=== PATIENT | female | born 1980 | race Two or more races ===

== ENCOUNTER 2018-03-07 18:34 | Emergency (ER) | payer SELFPAY ==
[~2018-03-07] VITALS: Ht 167.6 cm; Wt 87.0 kg
[2018-03-07] MEDS ORDERED: IBUPROFEN 400MG TABLET PO ONE (19:00)
[2018-03-07 19:34] VITALS: BP 111/71
== END 2018-03-07 19:31 | disposition home or self-care (01) ==
LOC: ER 18:34
DX: S61.210A Laceration without foreign body of right index finger without damage to nail, initial encounter (principal); F17.200 Nicotine dependence, unspecified, uncomplicated; W45.8XXA Other foreign body or object entering through skin, initial encounter; Y93.89 Activity, other specified; Y92.89 Other specified places as the place of occurrence of the external cause; Y99.8 Other external cause status
CPT/HCPCS: 12001; 99283

== ENCOUNTER 2021-10-13 22:11 | Emergency (ER) | payer MEDICAID ==
[~2021-10-13] VITALS: Ht 152.4 cm; Wt 99.7 kg
[2021-10-13] MEDS ORDERED: FAMOTIDINE 20MG TABLET PO ONE (23:45)
[2021-10-14 01:07] LABS: CHLORIDE 106 mEq/L (98-107)
[2021-10-14 01:16] LABS: BASOPHILS % 1.1 % (0.0-2.0); HEMATOCRIT. 40.8 % (36.0-48.0); HEMOGLOBIN. 13.7 g/dL (12.0-16.0); LYMPHOCYTES % 36.8 % (20.0-50.0); MEAN CORPUSCULAR HEMOGLOBIN 29.3 pg (28.0-32.0); MONOCYTES % 7.4 % (2.0-8.0); NEUTROPHILS % 51.7 % (40.0-76.0); PLATELET 257 x1000/uL (130-400); RED CELL DISTRIBUTION WIDTH 13.6 % (11.6-14.6)
[2021-10-14] MEDS ORDERED: HYDR10TA34 MT (01:50)
[2021-10-14 02:25] VITALS: BP 133/74
== END 2021-10-14 02:00 | disposition home or self-care (01) ==
LOC: ER 22:11
DX: L29.9 Pruritus, unspecified (principal)
CPT/HCPCS: 36415; 80053; 85025; 99283

== ENCOUNTER 2021-10-30 16:45 | Emergency (ER) | payer MEDICAID ==
[~2021-10-30] VITALS: Ht 152.4 cm; Wt 92.0 kg
[~2021-10-30 16:45] MED LIST: HYDR10TA34 MT
[2021-10-30 21:01] VITALS: BP 128/88
== END 2021-10-30 21:00 | disposition home or self-care (01) ==
LOC: ER 16:45
DX: Z20.822 Contact with and (suspected) exposure to COVID-19 (principal); J45.909 Unspecified asthma, uncomplicated
CPT/HCPCS: 87426; 99283; C9803

== ENCOUNTER 2023-01-20 11:03 | Emergency (ER) | payer MEDICAID ==
[~2023-01-20] VITALS: Ht 152.4 cm; Wt 100.0 kg
[2023-01-20 11:23] VITALS: O2SAT 100
[2023-01-20] MEDS ORDERED: PHEN1CAP86 MT (12:19)
[2023-01-20 12:53] VITALS: BP 97/58; PULSE 84; RESP 16; TEMP 98.7
== END 2023-01-20 13:15 | disposition home or self-care (01) ==
LOC: ER 11:03
DX: B33.8 Other specified viral diseases (principal); J45.909 Unspecified asthma, uncomplicated; Z20.822 Contact with and (suspected) exposure to COVID-19
CPT/HCPCS: 99283; 87426; C9803

== ENCOUNTER 2024-05-20 14:31 | Emergency (ER) | payer MEDICAID ==
[~2024-05-20] VITALS: Ht 154.9 cm; Wt 95.2 kg
[~2024-05-20 14:31] MED LIST changes: +PHEN1CAP86 MT
[2024-05-20 14:44] VITALS: BP 105/61; RESP 16; O2SAT 99
[2024-05-20 14:45] VITALS: PULSE 107; O2SAT 99
[2024-05-20 15:38] LABS: BASOPHILS % 1.5 % (0.0-2.0); EOSINOPHILS % 5.4 % (0.0-5.0); HEMATOCRIT. 39.9 % (36.0-48.0); HEMOGLOBIN. 13.2 g/dL (12.0-16.0); LYMPHOCYTES % 24.9 % (20.0-50.0); MEAN CORPUSCULAR HEMOGLOBIN 29.3 pg (28.0-32.0); MEAN CORPUSCULAR HGB CONC 33.1 g/dL (31.0-37.0); MEAN CORPUSCULAR VOLUME 88.6 fL (81.0-99.0); MEAN PLATELET VOLUME 10.2 fl (7.4-10.4); MONOCYTES % 8.2 % (2.0-8.0); PLATELET 195 x1000/uL (130-400); RED BLOOD CELL COUNT 4.51 mill/uL (4.2-5.4); RED CELL DISTRIBUTION WIDTH 13.7 % (11.6-14.6); WHITE BLOOD COUNT 7.6 x1000/uL (4.5-11.0)
[2024-05-20 15:46] LABS: CHLORIDE 108 mEq/L (98-107); POTASSIUM 3.9 mEq/L (3.5-5.1); SODIUM 141 mEq/L (136-145)
[2024-05-20 15:47] LABS: CALCIUM 9.2 mg/dL (8.7-10.4); CARBON DIOXIDE 26 mEq/L (21-32)
[2024-05-20 15:52] LABS: CREATININE 0.9 mg/dL (0.6-1.0); GLUCOSE 89 mg/dL (70-105); UREA NITROGEN BLOOD 12 mg/dL (9-23)
[2024-05-20] MEDS ORDERED: ACET-2708 MT (16:42)
[2024-05-20] MEDS ORDERED: PRED5TAB48 MT (16:42)
[2024-05-20 16:49] VITALS: TEMP 98.5
[2024-05-20] MEDS: ACETAMINOPHEN 325MG TABLET PO ONE (16:49)
== END 2024-05-20 16:51 | disposition home or self-care (01) ==
LOC: ER 14:31
DX: B34.9 Viral infection, unspecified (principal); J45.909 Unspecified asthma, uncomplicated
CPT/HCPCS: 36415; 80048; 85025; 99283

== ENCOUNTER 2025-04-18 20:11 | Emergency (ER) | payer MEDICAID ==
[~2025-04-18] VITALS: Ht 152.4 cm; Wt 100.1 kg
[~2025-04-18 20:11] MED LIST changes: +ACET-2708 MT; +PRED5TAB48 MT
[2025-04-18 20:25] VITALS: TEMP 36.8; O2SAT 99
[2025-04-18] MEDS ORDERED: LIDO-53 TP (22:31)
[2025-04-18] MEDS ORDERED: NAPR-1176 MT (22:31)
[2025-04-18] MEDS ORDERED: DICL100G46 TP (22:31)
[2025-04-18] MEDS: KETOROLAC 15MG/ML VIAL IM ONE (22:39)
[2025-04-18] MEDS: LIDOCAINE 5% PATCH TOP SCH (23:07)
[2025-04-18 23:08] VITALS: BP 119/59; PULSE 75; RESP 18; O2SAT 100
== END 2025-04-18 23:08 | disposition home or self-care (01) ==
LOC: ER 20:11
DX: M25.561 Pain in right knee (principal); Z79.1 Long term (current) use of non-steroidal anti-inflammatories (NSAID)
CPT/HCPCS: 99283; 73562; 96372; J1885